=== PATIENT | male | born 1990 | race Caucasian/White ===

== ENCOUNTER 2016-05-22 11:30 | Emergency (ER) | payer BC ==
[~2016-05-22] VITALS: Ht 177.8 cm; Wt 131.0 kg
[2016-05-22 11:33] VITALS: TEMP 37; Ht 177.8 cm; Wt 131.0 kg
--- NOTE | 2016-05-22 13:14 | DIAGNOSTIC IMAGING REPORT ---
RIGHT KNEE 3 VIEWS CLINICAL HISTORY: RIGHT, POSTERIOR KNEE PAIN Right pain COMPARISON: None. DISCUSSION: The bones and joint spaces appear intact. There is no evidence of fracture, dislocation or bony disease. There is no evidence for soft tissue swelling. IMPRESSION: Negative study. Electronically signed by: Yemi Zamarripa M.D. 05/22/2016 1:13 PM Dictated Date/Time: 05/22/2016 1:13 PM
[2016-05-22 13:35] VITALS: BP 131/81; PULSE 91; O2SAT 96
--- NOTE | 2016-05-22 14:22 | DIAGNOSTIC IMAGING REPORT ---
ULTRASOUND RIGHT VENOUS DOPP LOWER EXT UNILAT CLINICAL HISTORY: Right leg pain COMPARISON STUDY: No previous studies for comparison. FINDINGS: Real-time and color flow Doppler imaging were performed. Flow was seen within the femoral, popliteal and calf veins with no intraluminal thrombus demonstrated. The saphenous vein is patent. No popliteal cyst is identified. IMPRESSION: No evidence of right lower extremity DVT. Electronically signed by: Lasha Elizabeth M.D. 05/22/2016 2:21 PM Dictated Date/Time: 05/22/2016 2:20 PM
--- NOTE | 2016-05-22 14:28 | EMERGENCY ROOM VISIT NOTE ---
ED Visit Note First contact with patient: 12:05 CHIEF COMPLAINT: Pain behind right knee times one week HISTORY OF PRESENT ILLNESS: Patient is an otherwise healthy 25-year-old white male who presents emergency department for evaluation of pain behind the right knee. He has had symptoms intermittently over the last couple of weeks. It was present for a couple of days last week, but went away. It returned again yesterday. He describes it as a squeezing pain behind the right knee and into the top of the calf slightly. He denies any anterior knee pain. There is no knee injury. He denies any redness or swelling. He has not taken any medications, nor performed any interventions for this. He was seen at [facility] today and they talked about the possibility of a DVT, and encouraged him to come to the ER for an ultrasound. He denies any leg swelling. No DVT risk factors. He rates his discomfort a 2/10. REVIEW OF SYSTEMS: Review of systems as per HPI. All other systems reviewed were negative. 10 systems reviewed. PMH: Electronic medical records are reviewed and summarized as above/below. See Problem List. SOCIAL HISTORY: Patient lives at home with his fianc. Nonsmoker, drinks alcohol socially.. PHYSICAL EXAM: Vital Signs: Reviewed Nurse's notes. MENTAL STATUS: Alert, oriented, and cooperative. HEART: Regular rate and rhythm. LUNGS: Clear to auscultation. EXTREMITIES: Examination of the right lower extremity show no pitting edema, soft tissue swelling, erythema or outward signs of trauma. Distal pulses are easily palpable. Examination of the right knee does not note any joint effusion. There is no pain over the anterior aspect of the knee. There is no peripatellar tenderness or crepitus. No joint line discomfort. He has some discomfort in the posterior aspect of the knee in the popliteal base, extending into the proximal calf. Knee range of motion is full. Normal gait. Calves are soft and nontender. No palpable cords. Hip and ankle range of motion are full. EMERGENCY DEPARTMENT COURSE: X-rays of the right knee were obtained. Ultrasound of the right lower extremity was performed. X-ray noted no acute process. There was a small loose body noted in the popliteal space. Ultrasound of the right lower extremity did not demonstrate DVT. Differential diagnoses entertained included DVT, superficial thrombophlebitis, muscle strain , popliteal cyst, among others. Patient was encouraged to use ibuprofen, ice and follow-up with orthopedics if he does not feel that his symptoms are improving. ULTRASOUND RIGHT VENOUS DOPP LOWER EXT UNILAT CLINICAL HISTORY: Right leg pain COMPARISON STUDY: No previous studies for comparison. FINDINGS: Real-time and color flow Doppler imaging were performed. Flow was seen within the femoral, popliteal and calf veins with no intraluminal thrombus demonstrated. The saphenous vein is patent. No popliteal cyst is identified. IMPRESSION: No evidence of right lower extremity DVT. RIGHT KNEE 3 VIEWS CLINICAL HISTORY: RIGHT, POSTERIOR KNEE PAIN Right pain COMPARISON: None. DISCUSSION: The bones and joint spaces appear intact. There is no evidence of fracture, dislocation or bony disease. There is no evidence for soft tissue swelling. IMPRESSION: Negative study. Problem List Medical Problems: (1) Acute abdominal pain Status: Resolved Surgical Problems: (1) excision of pilonidal cyst Status: Resolved Current/Historical Medications No Active Prescriptions or Reported Meds Allergies Coded Allergies: No Known Allergies (Verified , `, 04/23/14) Vital Signs Date Time Temp Pulse Resp B/P Pulse Ox O2 Delivery O2 Flow Rate FiO2 05/22/16 13:35 91 16 131/81 96 Room Air 05/22/16 11:33 37.0 80 16 162/99 99 Room Air Departure Information Impression Primary Impression: Posterior right knee pain Prescriptions No Active Prescriptions or Reported Meds Referrals Mildred Wing M.D. (MEDICAL) (PCP) Patient Instructions My [facility] [address] Additional Instructions Ibuprofen(Motrin, Advil) may be used for fever or pain. Use 600mg every six hours as needed. Take with food. Avoid using more than 2400mg in a 24 hour period. Do not use 2400mg per day for more than three consecutive days without physician direction. Prolonged inappropriate use can lead to stomach upset or ulcers. This medication can be taken if you need to drive, work, or perform activities which may be dangerous when taking narcotic pain medication. (AND/OR) Acetaminophen(Tylenol) may be used for fever or pain. Use 1000mg every six hours as needed. Avoid using more than 3000mg in a 24 hour period. This medication can be taken if you need to drive, work, or perform activities which may be dangerous when taking narcotic pain medication. Rest and elevate your injury. Continue current medications. Return to the ER immediately for any numbness, tingling, severe pain, extreme swelling in the extremity or as needed. Follow up with your primary care provider or orthopedics for further care and management of your symptoms if not improving in 3-5 days.
== END 2016-05-22 14:43 | disposition home or self-care (01) ==
LOC: C.EDB 11:31 → C.EDD 14:43
DX: M25.561 Pain in right knee (principal)